=== PATIENT | male | born 1970 | race Caucasian/White ===

== ENCOUNTER 2018-11-30 11:11 | Emergency (ER) | payer MEDICARE, MEDICAID ==
[2018-11-30 11:19] VITALS: BP 143/114; PULSE 78
[2018-11-30] MEDS ORDERED: Metoclopramide 10 MG/2 ML SDV IM ONE (11:46)
[2018-11-30] MEDS ORDERED: diphenhydrAMINE 50 MG/ML SDV IM ONE (11:46)
[2018-11-30] MEDS ORDERED: Ketorolac 60 MG/2 ML SDV IM ONE (11:46)
--- NOTE | 2018-11-30 11:46 | EDM.PDOC ---
ED HPI GENERAL MEDICAL PROBLEM - General Chief Complaint: Headache Stated Complaint: BAD MIGRAINE X4 DAYS WANTS A SHOT Time Seen by Provider: 11/30/18 11:43 Source of Information: Reports: Patient History Limitations: Reports: No Limitations - History of Present Illness INITIAL COMMENTS - FREE TEXT/NARRATIVE: 48-year-old male presents for evaluation and treatment of a migraine. Patient reports he had a history of migraines. states it has been quite sometime since he has had one this severe. Reports the pain is behind his eyes, forehead and occipital area. Has been taking [id number] Tylenol with no relief. He is not normally on any medications for migraine. Reports symptoms of photophobia, lightheadedness, decreased appetite and feeling shaky. He denies any nausea or vomiting. He states that he had vision changes including his eyes showing black spots and "eyes going black." No vision changes at this time. He is sniffling. States he has environmental allergies and takes over-the- counter antihistamines for this. No fevers, chills, ear pain or sore throat. . Patient reports some tingling in his feet. this chronic before he had the migraine. He is unsure if he is a diabetic. He is a smoker. Primary care provider is Dr. Sharma. Onset: Gradual Duration: Day(s): (4) Location: Reports: Head Headache Pain Score (Numeric/FACES): 8 - Related Data Allergies Allergy/AdvReac Type Severity Reaction Status Date / Time No Known Allergies Allergy Verified 02/11/16 12:42 Home Meds: Home Meds . [No Known Home Meds] 11/30/18 [History] Past Medical History - Past Health History Medical/Surgical History: Denies Medical/Surgical History HEENT History: Reports: None Cardiovascular History: Reports: None Respiratory History: Reports: None, Other (See Below) Other Respiratory History: seasonal allergies Gastrointestinal History: Reports: None Genitourinary History: Reports: None Musculoskeletal History: Reports: Osteoarthritis Neurological History: Reports: Headaches, Chronic, Migraines Psychiatric History: Reports: Anxiety Other Psychiatric History: Past alcohol addiction. Patient has been sober for 14 years. Endocrine/Metabolic History: Reports: None Hematologic History: Reports: None Immunologic History: Reports: None Oncologic (Cancer) History: Reports: None Dermatologic History: Reports: None Other Dermatologic History: hx body lice - Infectious Disease History Infectious Disease History: Reports: None - Past Surgical History Head Surgeries/Procedures: Reports: None Other Musculoskeletal Surgeries/Procedures:: Lumbar surgery Social & Family History - Family History Family Medical History: Noncontributory - Tobacco Use Smoking Status *Q: Current Every Day Smoker Years of Tobacco use: 25 Packs/Tins Daily: 0.5 - Caffeine Use Caffeine Use: Reports: Coffee - Recreational Drug Use Recreational Drug Use: No - Living Situation & Occupation Living situation: Reports: Single, with Significant Other ED ROS GENERAL - Review of Systems Review Of Systems: See Below Constitutional: Denies: Fever, Chills HEENT: Reports: Vision Change (reports black spots and vision going black), Other (reports photophobia). Denies: Ear Pain, Throat Pain GI/Abdominal: Denies: Nausea, Vomiting Neurological: Reports: Headache, Tingling (bilateral feet, chronic) - Physical Exam Exam: See Below Exam Limited By: No Limitations General Appearance: Alert, WD/WN, No Apparent Distress Eye Exam: Bilateral Eye: Normal Inspection Ears: Normal External Exam Nose: Normal Inspection Throat/Mouth: Normal Inspection, Normal Lips, Normal Voice, No Airway Compromise Head Exam: Atraumatic, Normocephalic Neck: Normal Inspection Respiratory/Chest: No Respiratory Distress, Lungs Clear, Normal Breath Sounds Cardiovascular: Normal Peripheral Pulses, Regular Rate, Rhythm, No Murmur GI/Abdominal: Normal Bowel Sounds, Soft, Non-Tender Neuro Exam (Abbreviated): Alert, Oriented, Normal Cognition Psychiatric: Normal Affect, Normal Mood Skin Exam: Warm, Dry, Normal Color Course - Vital Signs Last Recorded V/S: Last Vital Signs Temp 96.9 F 11/30/18 11:16 Pulse 78 11/30/18 11:16 Resp 16 11/30/18 11:16 BP 143/114 H 11/30/18 11:16 Pulse Ox 97 11/30/18 11:16 - Orders/Labs/Meds Orders: Active Orders 24 hr Category Date Time Status Blood Glucose Check, Bedside [RC] ONETIME Care 11/30/18 11:47 Active Labs: Laboratory Tests 11/30/18 Range/Units 11:53 POC Glucose 93 (70-105) mg/dL Meds: Medications Discontinued Medications Generic Name Dose Route Start Last Admin Trade Name Freq PRN Reason Stop Dose Admin Diazepam 5 mg 11/30/18 12:28 11/30/18 12:39 Valium. PO 11/30/18 12:29 5 mg ONETIME ONE Administration Diphenhydramine HCl 50 mg 11/30/18 11:46 11/30/18 11:59 Benadryl IM 11/30/18 11:47 50 mg ONETIME ONE Administration Ketorolac Tromethamine 60 mg 11/30/18 11:46 11/30/18 11:57 Toradol IM 11/30/18 11:47 60 mg ONETIME ONE Administration Metoclopramide HCl 5 mg 11/30/18 11:46 11/30/18 11:58 Reglan IM 11/30/18 11:47 5 mg ONETIME ONE Administration Sumatriptan Succinate 50 mg 11/30/18 14:18 11/30/18 14:33 Imitrex PO 11/30/18 14:19 50 mg ONETIME ONE Administration - Re-Assessments/Exams Free Text/Narrative Re-Assessment/Exam: 11/30/18 12:48 Checked on the patient. He reports that his headache has not improved at all. I will treat him some Valium for more of a tension type headache. 11/30/18 14:14 Checked on the patient. He reports headache has not improved at all. He is resting in bed comfortably in no obvious distress. He is watching TV. Question if this is more of withdrawal from something with the reported shakiness or if he is possibly drug-seeking. 11/30/18 15:13 Checked on the patient. He reports his headache is gone after the Imitrex. We will discharge him home. Discharge instructions as documented. Departure - Departure Time of Disposition: 15:13 Disposition: Home, Self-Care 01 Condition: Good Clinical Impression: Migraine - Discharge Information *PRESCRIPTION DRUG MONITORING PROGRAM REVIEWED*: Yes *COPY OF PRESCRIPTION DRUG MONITORING REPORT IN PATIENT CALEB: No Instructions: Migraine Headache Referrals: Wilner Sharma Jr, MD [Primary Care Provider] - Forms: ED Department Discharge Additional Instructions: Go home and rest. Make sure you are drinking plenty of fluids. Follow-up with your primary care provider for further management of your migraines. Please return to the ER if your symptoms change or worsen. - My Orders Last 24 Hours: My Active Orders 11/30/18 11:47 Blood Glucose Check, Bedside [RC] ONETIME - Assessment/Plan Last 24 Hours: My Active Orders 11/30/18 11:47 Blood Glucose Check, Bedside [RC] ONETIME
[2018-11-30] MEDS ORDERED: Diazepam 5 MG Tab PO ONE (12:28)
[2018-11-30] MEDS ORDERED: SUMAtriptan 50 MG Tab PO ONE (14:18)
== END 2018-11-30 15:18 | disposition home or self-care (01) ==
LOC: JD.ED 11:11
DX: G43.909 Migraine, unspecified, not intractable, without status migrainosus (principal); F17.210 Nicotine dependence, cigarettes, uncomplicated; M19.90 Unspecified osteoarthritis, unspecified site
CPT/HCPCS: 82962; 96372; 99283; A9270; J1200; J1885; J2765

== ENCOUNTER 2019-04-03 19:13 | Emergency (ER) | payer MEDICARE, MEDICAID ==
[2019-04-03 19:27] VITALS: BP 160/109; PULSE 100
--- NOTE | 2019-04-03 19:41 | EDM.PDOC ---
ED HPI GENERAL MEDICAL PROBLEM - General Chief Complaint: Skin Complaint Stated Complaint: POSS INFECTION UNDER A DRUG PATCH Time Seen by Provider: 04/03/19 19:26 Source of Information: Reports: Patient History Limitations: Reports: No Limitations - History of Present Illness INITIAL COMMENTS - FREE TEXT/NARRATIVE: The patient presents for a rash under his drug patch. He first noticed the redness 3 days ago and it has gotten worse. He has no other symptoms such as shortness of breath or trouble breathing. Onset: Gradual Duration: Day(s): Location: Reports: Back (right flank area) Quality: Reports: Burning Severity: Moderate Improves with: Reports: None Worsens with: Reports: None Associated Symptoms: Reports: No Other Symptoms Right Abdominal Pain Score (Numeric/FACES): 9 - Related Data Allergies Allergy/AdvReac Type Severity Reaction Status Date / Time amoxicillin Allergy Rash Verified 04/03/19 19:28 Home Meds: Home Meds . [No Known Home Meds] 10/07/18 [History] Past Medical History - Past Health History Medical/Surgical History: Denies Medical/Surgical History Psychiatric History: Reports: Addiction - Past Surgical History Neurological Surgical History: Reports: Lumbar Spine Other Musculoskeletal Surgeries/Procedures:: Back surgery Social & Family History - Family History Family Medical History: Noncontributory - Tobacco Use Smoking Status *Q: Current Every Day Smoker Years of Tobacco use: 30 Packs/Tins Daily: 0.5 - Caffeine Use Caffeine Use: Reports: Coffee - Recreational Drug Use Recreational Drug Use: No - Living Situation & Occupation Living situation: Reports: Single Occupation: Unemployed ED ROS GENERAL - Review of Systems Review Of Systems: See Below Constitutional: Reports: No Symptoms HEENT: Reports: No Symptoms Respiratory: Reports: No Symptoms Cardiovascular: Reports: No Symptoms Endocrine: Reports: No Symptoms GI/Abdominal: Reports: No Symptoms : Reports: No Symptoms Skin: Reports: Rash (Under drug patch) Neurological: Reports: No Symptoms ED EXAM, SKIN/RASH Exam: See Below Exam Limited By: No Limitations General Appearance: Alert, No Apparent Distress Ears: Normal External Exam Nose: Normal Inspection Throat/Mouth: Normal Inspection Head: Atraumatic, Normocephalic Neck: Normal Inspection Respiratory/Chest: No Respiratory Distress Back Exam: Other (Right lateral back has a drug patch with erythema and some edema) Extremities: Normal Inspection Neurological: Alert, Oriented, No Motor/Sensory Deficits Course - Vital Signs Last Recorded V/S: Last Vital Signs Temp 98.5 F 04/03/19 19:25 Pulse 100 04/03/19 19:25 Resp 18 04/03/19 19:25 BP 160/109 H 04/03/19 19:25 Pulse Ox 98 04/03/19 19:25 - Orders/Labs/Meds Orders: Active Orders 24 hr Category Date Time Status Hydrocortisone [Hydrocortisone 1% Crm] Med 04/03/19 20:14 Once 30 gm TOP ASDIRECTED ONE - Re-Assessments/Exams Free Text/Narrative Re-Assessment/Exam: 04/03/19 19:41 [facility]. 04/03/19 20:15 [facility] came and took the patch. He has contact dermatitis. I will put some hydrocortisone cream on it. Departure - Departure Time of Disposition: 20:20 Disposition: Home, Self-Care 01 Condition: Good Clinical Impression: Contact dermatitis Qualifiers: Contact dermatitis type: allergic Contact dermatitis trigger: adhesive Qualified Code(s): L23.1 - Allergic contact dermatitis due to adhesives - Discharge Information *PRESCRIPTION DRUG MONITORING PROGRAM REVIEWED*: Not Applicable *COPY OF PRESCRIPTION DRUG MONITORING REPORT IN PATIENT CALEB: Not Applicable Referrals: Wilner Sharma Jr, MD [Primary Care Provider] - Forms: ED Department Discharge Additional Instructions: Put hydrocortisone cream on the affected area 3 times per day for 2 days and then 2 times per day for 5 days. Clean the affected area a couple times per day with warm soapy water. Sepsis Event Note - Evaluation Sepsis Screening Result: No Definite Risk - Focused Exam Vital Signs: Vital Signs Temp Pulse Resp BP Pulse Ox 04/03/19 19:25 98.5 F 100 18 160/109 H 98 Date Exam was Performed: 04/03/19 Time Exam was Performed: 20:15 - My Orders Last 24 Hours: My Active Orders 04/03/19 20:14 Hydrocortisone [Hydrocortisone 1% Crm] 30 gm TOP ASDIRECTED ONE - Assessment/Plan Last 24 Hours: My Active Orders 04/03/19 20:14 Hydrocortisone [Hydrocortisone 1% Crm] 30 gm TOP ASDIRECTED ONE
[2019-04-03] MEDS ORDERED: Hydrocortisone 1% Crm 30 GM Tube TOP ONE (20:14)
== END 2019-04-03 20:28 | disposition home or self-care (01) ==
LOC: JD.ED 19:13 → MERGE 19:13 → JD.ED 20:28
DX: L23.1 Allergic contact dermatitis due to adhesives (principal); F17.210 Nicotine dependence, cigarettes, uncomplicated; Z88.1 Allergy status to other antibiotic agents
CPT/HCPCS: 99282; A9270

== ENCOUNTER 2020-02-05 23:17 | Emergency (ER) | payer MEDICARE, MEDICAID ==
--- NOTE | 2020-02-05 23:31 | EDM.PDOC ---
ED HPI GENERAL MEDICAL PROBLEM - General Chief Complaint: Skin Complaint Stated Complaint: MRSA IN SHOULDER Time Seen by Provider: 02/05/20 23:45 Source of Information: Reports: Patient, RN Notes Reviewed - History of Present Illness INITIAL COMMENTS - FREE TEXT/NARRATIVE: 49 yr male comes in with area of swelling and erythema R superior shoulder that came on 2 or 3 days ago. Tried to "squeeze it" slight bloody drainage. No fever or chills. Right Shoulder Pain Score (Numeric/FACES): 9 - Related Data Allergies Allergy/AdvReac Type Severity Reaction Status Date / Time amoxicillin Allergy Rash Verified 02/05/20 23:32 Home Meds: Home Meds Doxycycline [Vibramycin] 100 mg PO BID #20 tab 02/05/20 [Rx] hydroCHLOROthiazide [Hydrochlorothiazide] 12.5 mg PO DAILY 02/05/20 [History] Past Medical History - Past Health History Medical/Surgical History: Denies Medical/Surgical History HEENT History: Reports: None Cardiovascular History: Reports: None Respiratory History: Reports: None, Other (See Below) Other Respiratory History: seasonal allergies Gastrointestinal History: Reports: None Genitourinary History: Reports: None Musculoskeletal History: Reports: Osteoarthritis Neurological History: Reports: Headaches, Chronic, Migraines Psychiatric History: Reports: Addiction, Anxiety Other Psychiatric History: Past alcohol addiction. Patient has been sober for 14 years. Endocrine/Metabolic History: Reports: None Hematologic History: Reports: None Immunologic History: Reports: None Oncologic (Cancer) History: Reports: None Dermatologic History: Reports: None Other Dermatologic History: hx body lice - Infectious Disease History Infectious Disease History: Reports: None - Past Surgical History Neurological Surgical History: Reports: Lumbar Spine Other Musculoskeletal Surgeries/Procedures:: Back surgery Social & Family History - Family History Family Medical History: No Pertinent Family History - Caffeine Use Caffeine Use: Reports: Coffee - Living Situation & Occupation Living situation: Reports: Single, with Significant Other Occupation: Unemployed ED ROS GENERAL - Review of Systems Review Of Systems: See Below Constitutional: Denies: Fever, Chills HEENT: Reports: No Symptoms Respiratory: Denies: Shortness of Breath Cardiovascular: Reports: No Symptoms GI/Abdominal: Reports: No Symptoms Musculoskeletal: Reports: No Symptoms Skin: Reports: Erythema (area of erythema and swelling R superior shoulder) Neurological: Reports: No Symptoms ED EXAM, SKIN/RASH Exam: See Below General Appearance: Alert, No Apparent Distress Head: Atraumatic Neck: Supple Respiratory/Chest: No Respiratory Distress Skin: Warm, Dry, Erythema (2 to 3 cm or erythema surrounding an area of central swelling R superior shoulder, no active drainage) Course - Vital Signs Last Recorded V/S: Last Vital Signs Temp 97.5 F 02/05/20 23:32 Pulse 89 02/05/20 23:32 Resp 17 02/05/20 23:32 BP 166/109 H 02/05/20 23:32 Pulse Ox 97 02/05/20 23:32 - Orders/Labs/Meds Meds: Medications Discontinued Medications Generic Name Dose Route Start Last Admin Trade Name Freq PRN Reason Stop Dose Admin Doxycycline Hyclate 100 mg 02/05/20 23:44 02/05/20 23:54 Vibramycin PO 02/05/20 23:45 100 mg ONETIME ONE Administration Departure - Departure Time of Disposition: 23:45 Disposition: Home, Self-Care 01 Condition: Fair Clinical Impression: Folliculitis - Discharge Information Prescriptions: Doxycycline [Vibramycin] 100 mg PO BID #20 tab Instructions: Folliculitis Referrals: Wilner Sharma Jr, MD [Primary Care Provider] - Forms: ED Department Discharge Additional Instructions: Doxycycline 100 mg twice daily for 10 days or until gone. First dose has been given here in the ED. Warm compresses about 4 times daily as discussed. In 2 to 3 days if a pus pocket develops this can be opened with with a needle or sharp blade to help that drain. Have rechecked if symptoms worsening or not resolving as expected. Sepsis Event Note (ED) - Focused Exam Vital Signs: Vital Signs Temp Pulse Resp BP Pulse Ox 02/05/20 23:32 97.5 F 89 17 166/109 H 97
[2020-02-05 23:36] VITALS: BP 166/109; PULSE 89
[2020-02-05] MEDS ORDERED: Doxycycline 100 MG Cap PO ONE (23:44)
== END 2020-02-05 23:56 | disposition home or self-care (01) ==
LOC: JD.ED 23:17
DX: L73.9 Follicular disorder, unspecified (principal); Z88.1 Allergy status to other antibiotic agents; Z79.899 Other long term (current) drug therapy
CPT/HCPCS: 99283; A9270

== ENCOUNTER 2020-07-12 20:42 | Emergency (ER) | payer MEDICARE, MEDICAID ==
[2020-07-12 20:55] VITALS: BP 149/99; PULSE 94
[2020-07-12] MEDS ORDERED: Sodium Chloride 0.9% 10 ML Syringe FLUSH PRN (21:32)
[2020-07-12] MEDS ORDERED: LORazepam 0.5 MG Tab PO ONE (21:47)
--- NOTE | 2020-07-12 21:53 | EDM.PDOC ---
ED HPI GENERAL MEDICAL PROBLEM - General Chief Complaint: Cardiovascular Problem Stated Complaint: HIGH BP DIZZY SPELLS Time Seen by Provider: 07/12/20 21:38 Source of Information: Reports: Patient, RN Notes Reviewed History Limitations: Reports: No Limitations, Intoxication - History of Present Illness INITIAL COMMENTS - FREE TEXT/NARRATIVE: Patient is a 50-year-old male who presents to the ER for his high blood pressure, and dizzy spells. This has been going on for some time. He was on blood pressure medications, in the past but notes he ran out in March, he cannot member the name of the medications. He has some intermittent dizzy spells, and states that he has been more fatigued lately, he has not actually checked his blood pressure at home, but states he can "feel when his blood pressure is up". He states that he has shortness of breath at times, seems to worsen when his blood pressure seems to be up. Patient does have a history of alcoholism, and he notes that he had "1 drink tonight" thought that it would help this however he states it did not. He does have some chest discomfort at times, in the middle of his chest, and does not seem to radiate anywhere. He denies any sort of past medical history like an OR, or stent placement. He is a smoker as well. He would like to try to quit smoking. - Related Data Allergies Allergy/AdvReac Type Severity Reaction Status Date / Time amoxicillin Allergy Rash Verified 02/05/20 23:32 Home Meds: Home Meds Doxycycline [Vibramycin] 100 mg PO BID #20 tab 02/05/20 [Rx] hydroCHLOROthiazide [Hydrochlorothiazide] 12.5 mg PO DAILY 02/05/20 [History] Past Medical History Cardiovascular History: Reports: Hypertension Respiratory History: Reports: Other (See Below) Other Respiratory History: seasonal allergies Musculoskeletal History: Reports: Osteoarthritis Neurological History: Reports: Headaches, Chronic, Migraines Psychiatric History: Reports: Addiction, Anxiety Other Psychiatric History: Past alcohol addiction. Patient has been sober for 14 years. Endocrine/Metabolic History: Reports: Obesity/BMI 30+ Dermatologic History: Reports: Other (See Below) Other Dermatologic History: hx body lice - Infectious Disease History Infectious Disease History: Reports: MRSA - Past Surgical History HEENT Surgical History: Reports: Other (See Below) Other HEENT Surgeries/Procedures: nose reconstruction Neurological Surgical History: Reports: Lumbar Spine Other Musculoskeletal Surgeries/Procedures:: Back surgery Social & Family History - Family History Family Medical History: No Pertinent Family History - Tobacco Use Tobacco Use Status *Q: Current Every Day Tobacco User Years of Tobacco use: 25 Packs/Tins Daily: 1 - Caffeine Use Caffeine Use: Reports: Coffee - Recreational Drug Use Recreational Drug Use: No - Living Situation & Occupation Living situation: Reports: Single, with Significant Other Occupation: Unemployed ED ROS GENERAL - Review of Systems Review Of Systems: Comprehensive ROS is negative, except as noted in HPI. ED EXAM, GENERAL - Physical Exam Exam: See Below Exam Limited By: No Limitations General Appearance: Alert, WD/WN, No Apparent Distress, Anxious (generalized) Throat/Mouth: Normal Inspection, Normal Lips, Normal Teeth, Normal Gums, Normal Oropharynx, Normal Voice, No Airway Compromise Head: Atraumatic, Normocephalic Neck: Normal Inspection Respiratory/Chest: No Respiratory Distress, Lungs Clear, Normal Breath Sounds, No Accessory Muscle Use, Chest Non-Tender Cardiovascular: Normal Peripheral Pulses, Regular Rate, Rhythm, No Edema Peripheral Pulses: 2+: Radial (L), Radial (R) Extremities: Normal Inspection, Normal Capillary Refill Neurological: Alert, Oriented, Normal Cognition, No Motor/Sensory Deficits Psychiatric: Normal Affect, Normal Mood, Anxious Skin Exam: Warm, Dry, Intact, Normal Color, No Rash #1 Interpretation EKG Date: 07/12/20 Time: 21:37 Rhythm: NSR Rate (Beats/Min): 71 [place]: Normal P-Wave: Present QRS: Normal ST-T: Normal QT: Normal Comparison: NA - No Prior EKG EKG Interpretation Comments: No obvious ischemia or acute ST changes noted, reviewed by myself and Dr. Jimenez. Course - Vital Signs Last Recorded V/S: Last Vital Signs Temp 96.8 F L 07/12/20 20:53 Pulse 94 07/12/20 20:53 Resp 16 07/12/20 20:53 BP 149/99 H 07/12/20 20:53 Pulse Ox 98 07/12/20 20:53 - Orders/Labs/Meds Orders: Active Orders 24 hr Category Date Time Status EKG Documentation Completion [RC] STAT Care 07/12/20 21:32 Active Peripheral IV Care [RC] . DIRECTED Care 05/01/21 21:32 Active Chest 2V [CR] Stat Exams 07/12/20 21:32 Ordered Sodium Chloride 0.9% [Saline Flush] Med 07/12/20 21:32 Active 10 ml FLUSH ASDIRECTED PRN Peripheral IV Insertion Adult [OM.PC] Stat Oth 07/12/20 21:32 Ordered Medication Orders Sodium Chloride (Sodium Chloride 0.9% 10 Ml Syringe) 10 ml FLUSH ASDIRECTED PRN PRN Reason: Keep Vein Open Labs: Laboratory Tests 07/12/20 07/12/20 07/12/20 Range/Units 21:44 21:44 21:44 WBC 7.76 (4.23-9.07) K/mm3 RBC 5.50 (4.63-6.08) M/mm3 Hgb 16.7 D (13.7-17.5) gm/dl Hct 47.6 (40.1-51.0) % MCV 86.5 (79.0-92.2) fl MCH 30.4 (25.7-32.2) pg MCHC 35.1 (32.2-35.5) g/dl RDW Std Deviation 41.8 (35.1-43.9) fL Plt Count 391 H (163-337) K/mm3 MPV 8.8 L (9.4-12.3) fl Neut % (Auto) 43.7 (34.0-67.9) % Lymph % (Auto) 45.1 (21.8-53.1) % [place] % (Auto) 7.7 (5.3-12.2) % Eos % (Auto) 3.0 (0.8-7.0) Baso % (Auto) 0.4 (0.1-1.2) % Neut # (Auto) 3.39 (1.78-5.38) K/mm3 Lymph # (Auto) 3.50 (1.32-3.57) K/mm3 [place] # (Auto) 0.60 (0.30-0.82) K/mm3 Eos # (Auto) 0.23 (0.04-0.54) K/mm3 Baso # (Auto) 0.03 (0.01-0.08) K/mm3 Sodium 140 (136-145) mEq/L Potassium 3.9 (3.5-5.1) mEq/L Chloride 104 (98-107) mEq/L Carbon Dioxide 25 (21-32) mEq/L Anion Gap 14.9 (5-15) BUN 15 (7-18) mg/dL Creatinine 1.1 (0.7-1.3) mg/dL Est Cr Clr Drug Dosing 75.95 mL/min Estimated GFR (MDRD) > 60 (>60) mL/min BUN/Creatinine Ratio 13.6 L (14-18) Glucose 92 (74-106) mg/dL Calcium 9.9 (8.5-10.1) mg/dL Total Bilirubin 0.2 (0.2-1.0) mg/dL AST 17 (15-37) U/L ALT 13 L (16-63) U/L Alkaline Phosphatase 67 (46-116) U/L Troponin I < 0.017 (0.00-0.056) ng/mL Total Protein 8.4 H (6.4-8.2) g/dl Albumin 4.4 (3.4-5.0) g/dl Globulin 4.0 gm/dL Albumin/Globulin Ratio 1.1 (1-2) Ethyl Alcohol 0.14 (0.00) gm% Meds: Medications Generic Name Dose Route Start Last Admin Trade Name Freq PRN Reason Stop Dose Admin Sodium Chloride 10 ml 07/12/20 21:32 Sodium Chloride 0.9% 10 Ml Syringe FLUSH ASDIRECTED PRN Keep Vein Open Discontinued Medications Generic Name Dose Route Start Last Admin Trade Name Freq PRN Reason Stop Dose Admin Lorazepam 1 mg 07/12/20 21:47 07/12/20 21:51 Lorazepam 0.5 Mg Tab PO 07/12/20 21:48 1 mg ONETIME ONE Administration - Re-Assessments/Exams Free Text/Narrative Re-Assessment/Exam: 07/12/20 21:54 Patient presents to the ER for his elevated blood pressure readings and dizzy spells. I do believe a portion of this is due to anxiety, he does appear to be intoxicated from alcohol as well. EKG demonstrates no acute ST change or abnormalities reviewed by Dr. Jimenez or myself. We will get baseline labs as well. Patient blood pressure has already come down to the 120 systolically while being in the ER. Plan is to have him follow-up with a primary care provider to monitor blood pressures and possibly get started on blood pressure medication once again. 07/12/20 22:27 The patient's laboratory evaluation has been done, and demonstrates no focal abnormalities, troponin is undetectably low, patient's blood alcohol level is 0.14. Will reassess the patient at bedside, and try to discharge home with conservative recommendations have him follow-up with the regular care provider sometime this week for ongoing blood pressure management. Departure - Departure Time of Disposition: 22:27 Disposition: Home, Self-Care 01 Condition: Good Clinical Impression: Elevated blood pressure reading with diagnosis of hypertension, Anxiety Instructions: Managing Anxiety, Adult, Hypertension, Adult, [id number] Referrals: PCP,None [Primary Care Provider] - Forms: ED Department Discharge Additional Instructions: You were evaluated in the ER today for your elevated blood pressure readings. You had some laboratory evaluation taken at today's visit, EKG was done along with a chest x-ray and everything is unremarkable. You were given some medications for anxiety at today's visit, this seemed to help relieve most your symptoms. Please continue to monitor your blood pressure at home, and keep a journal of this to discuss with a primary care provider of choice, you will need to follow- up in a clinic, to get a family practice provider. [facility] clinic number [phone], [place] clinic number [phone]. Any family practice provider would be able to provide you with the services. Recommend you call the [place] quits helpline, to help you quit smoking, as you expressed interest in wanting to stop smoking at [facility]'s visit. They should be able to help you through the rough time, give you medications to stop if needed. Please return to the ER at any time if symptoms change or worsen. Sepsis Event Note (ED) - Evaluation Sepsis Screening Result: No Definite Risk - Focused Exam Vital Signs: Vital Signs Temp Pulse Resp BP Pulse Ox 07/12/20 20:53 96.8 F L 94 16 149/99 H 98
--- NOTE | 2020-07-14 07:07 | CR ---
Chest: PA and lateral views of the chest were obtained. Comparison: Prior chest x-ray of 12/16/15. Heart size and mediastinum are normal. Lungs are clear with no acute parenchymal change. Bony structures show no acute osseous abnormality. Impression: 1. Nothing acute is appreciated on 2 view chest x-ray. Diagnostic code #1
== END 2020-07-12 22:40 | disposition home or self-care (01) ==
LOC: JD.ED 20:42
DX: F41.9 Anxiety disorder, unspecified (principal); I10 Essential (primary) hypertension; E66.9 Obesity, unspecified; Z88.0 Allergy status to penicillin; Z72.0 Tobacco use; Z68.30 Body mass index [BMI] 30.0-30.9, adult
CPT/HCPCS: 36415; 71046; 80053; 80307; 84484; 85025; 93005; 99285; A9270; 93010; 99283

== ENCOUNTER 2021-05-08 10:36 | Emergency (ER) | payer MEDICARE, MEDICAID ==
[2021-05-08 10:48] VITALS: BP 166/100; PULSE 94
[2021-05-08] MEDS ORDERED: Ketorolac 60 MG/2 ML SDV IM ONE (11:12)
== END 2021-05-08 12:05 | disposition home or self-care (01) ==
LOC: JD.ED 10:36
DX: M54.41 Lumbago with sciatica, right side (principal); M54.42 Lumbago with sciatica, left side; I10 Essential (primary) hypertension; Z88.0 Allergy status to penicillin
CPT/HCPCS: 72100; 96372; 99284; J1885

== ENCOUNTER 2022-10-31 18:35 | Emergency (ER) | payer MEDICARE, MEDICAID ==
[2022-10-31] MEDS ORDERED: Sodium Chloride 0.9% 1,000 ML IV SCH (19:30)
[2022-10-31 19:40] LABS: HEMATOCRIT 43.4 % (40.1-51.0); HEMOGLOBIN 15.3 gm/dl (13.7-17.5); MEAN CORPUSCULAR HEMOGLOBIN 30.8 pg (25.7-32.2); MEAN CORPUSCULAR HGB CONC 35.3 g/dl (32.2-35.5); MEAN CORPUSCULAR VOLUME 87.5 fl (79.0-92.2); MEAN PLATELET VOLUME 8.8 fl (9.4-12.3); PLATELET COUNT,PLT 479 K/mm3 (163-337); RED BLOOD CELL COUNT 4.96 M/mm3 (4.63-6.08); WHITE BLOOD CELL COUNT,WBC 14.73 K/mm3 (4.23-9.07)
[2022-10-31 20:23] LABS: BAND PERCENT MAN 0 % (0-10); BASOPHILS PERCENT MAN 0 (0.2-1.2); EOSINOPHILS PERCENT MAN 0 % (0.8-7.0); LYMPHOCYTES % ATYPICAL MANUAL 0 %; LYMPHOCYTES PERCENT MAN 10 % (20-40); MONOCYTES PERCENT MAN 10 % (2-10)
[2022-10-31 20:24] LABS: PLATELET COUNT ESTIMATE INCREASED
[2022-10-31] MEDS ORDERED: Ondansetron 4 MG/2 ML SDV IVPUSH ONE (21:23)
[2022-10-31] MEDS ORDERED: Clindamycin Phosphate in D5W 300 MG in Premix Bag 1 BAG IV STA ×2 (21:23)
[2022-10-31 21:58] VITALS: BP 157/95; PULSE 100
== END 2022-10-31 21:54 | disposition home or self-care (01) ==
LOC: JD.ED 18:35
DX: J02.0 Streptococcal pharyngitis (principal); F17.210 Nicotine dependence, cigarettes, uncomplicated; Z20.822 Contact with and (suspected) exposure to COVID-19; Z79.899 Other long term (current) drug therapy; Z88.0 Allergy status to penicillin; Z88.1 Allergy status to other antibiotic agents
CPT/HCPCS: 36415; 70360; 71046; 85007; 85027; 86140; 87651; 96361; 96365; 96375; 99284; J2405; J3490; J7030; U0002

== ENCOUNTER 2022-11-15 18:25 | Emergency (ER) | payer MEDICARE, MEDICAID ==
[2022-11-15] MEDS ORDERED: HYDROmorphone 0.5 MG/0.5 ML Syringe IM ONE (19:27)
[2022-11-15 21:23] VITALS: BP 147/98; PULSE 114
== END 2022-11-15 21:40 | disposition home or self-care (01) ==
LOC: JD.ED 18:25
DX: M16.0 Bilateral primary osteoarthritis of hip (principal); F17.210 Nicotine dependence, cigarettes, uncomplicated; I10 Essential (primary) hypertension; Z79.899 Other long term (current) drug therapy; Z88.0 Allergy status to penicillin; Z88.1 Allergy status to other antibiotic agents
CPT/HCPCS: 72192; 96372; 99283; J1170

== ENCOUNTER 2022-12-21 12:46 | Emergency (ER) | payer MEDICARE, MEDICAID ==
[2022-12-21] MEDS ORDERED: Cephalexin 500 MG Cap PO ONE (13:48)
[2022-12-21 20:06] VITALS: BP 158/112; PULSE 107
== END 2022-12-21 14:38 ==
LOC: JD.ED 12:46
DX: L03.116 Cellulitis of left lower limb (principal); F17.210 Nicotine dependence, cigarettes, uncomplicated; E66.9 Obesity, unspecified; I10 Essential (primary) hypertension; Z79.899 Other long term (current) drug therapy; Z88.0 Allergy status to penicillin; Z88.1 Allergy status to other antibiotic agents
CPT/HCPCS: 99283; A9270

== ENCOUNTER 2023-01-09 01:32 | Emergency (ER) | payer MEDICARE, MEDICAID ==
[2023-01-09 01:46] VITALS: BP 136/98; PULSE 116
== END 2023-01-09 03:43 | disposition home or self-care (01) ==
LOC: JD.ED 01:32
DX: K04.7 Periapical abscess without sinus (principal); F17.210 Nicotine dependence, cigarettes, uncomplicated; E66.9 Obesity, unspecified; Z68.26 Body mass index [BMI] 26.0-26.9, adult; Z86.16 Personal history of COVID-19; Z88.0 Allergy status to penicillin
CPT/HCPCS: 99282; 99283

== ENCOUNTER 2023-02-23 23:08 | Emergency (ER) | payer MEDICARE, MEDICAID ==
[2023-02-24] MEDS ORDERED: Acetaminophen/Butalbital/Caffeine 325-50-40 MG Tab PO ONE (00:25)
[2023-02-24 01:10] VITALS: BP 172/108; PULSE 97
== END 2023-02-24 00:42 | disposition home or self-care (01) ==
LOC: JD.ED 23:08
DX: I10 Essential (primary) hypertension (principal); R51.9 Headache, unspecified; F17.210 Nicotine dependence, cigarettes, uncomplicated; Z86.16 Personal history of COVID-19; Z88.0 Allergy status to penicillin; Z88.1 Allergy status to other antibiotic agents
CPT/HCPCS: 99283; A9270

== ENCOUNTER 2023-03-22 08:20 | Emergency (ER) | payer MEDICARE, MEDICAID ==
[2023-03-22] MEDS ORDERED: Acetaminophen/HYDROcodone 325-5 MG Tab PO ONE (08:52)
[2023-03-22 09:02] VITALS: BP 143/96; PULSE 64
== END 2023-03-22 09:00 | disposition home or self-care (01) ==
LOC: JD.ED 08:20
DX: M16.11 Unilateral primary osteoarthritis, right hip (principal); F17.210 Nicotine dependence, cigarettes, uncomplicated; I10 Essential (primary) hypertension; Z86.16 Personal history of COVID-19; Z79.899 Other long term (current) drug therapy; Z88.0 Allergy status to penicillin; Z88.1 Allergy status to other antibiotic agents
CPT/HCPCS: 99283

== ENCOUNTER 2023-09-14 10:06 | Emergency (ER) | payer MEDICARE, MEDICAID ==
[2023-09-14] MEDS: Ketorolac 60 MG/2 ML SDV IM ONE (11:01)
[2023-09-14] MEDS: HYDROmorphone 1 MG/ML Syringe IM ONE (11:02)
[2023-09-14] MEDS ORDERED: Sodium Chloride 0.9% 10 ML Syringe FLUSH PRN (11:38)
[2023-09-14] MEDS: fentaNYL 100 MCG/2 ML SDV IVPUSH ONE (14:18)
[2023-09-14 15:24] VITALS: BP 141/93; PULSE 78
== END 2023-09-14 13:35 | disposition home or self-care (01) ==
LOC: JD.ED 10:06
DX: M16.11 Unilateral primary osteoarthritis, right hip (principal); I10 Essential (primary) hypertension; Z86.16 Personal history of COVID-19; Z87.891 Personal history of nicotine dependence; Z79.899 Other long term (current) drug therapy; Z88.0 Allergy status to penicillin
CPT/HCPCS: 73502; 73700; 96372; 99284; J1170; J1885

== ENCOUNTER 2023-11-10 22:00 | Emergency (ER) | payer MEDICARE, MEDICAID ==
[2023-11-10 22:47] VITALS: BP 183/96; PULSE 70
[2023-11-11] MEDS ORDERED: Sodium Chloride 0.9% 10 ML Syringe FLUSH PRN (00:42)
[2023-11-11 01:11] LABS: BASOPHILS PERCENT AUTO 0.4 % (0.0-1.0); EOSINOPHILS ABSOLUTE AUTO 0.3 K/mm3 (0.0-0.4); EOSINOPHILS PERCENT AUTO 3.4 % (0.0-6.0); HEMATOCRIT 37.1 % (42.0-52.0); HEMOGLOBIN 12.7 gm/dl (14.0-18.0); IMMATURE GRAN ABSOLUTE AUTO 0.02 K/mm3 (0.00-0.05); IMMATURE GRAN PERCENT AUTO 0.3 % (0.0-0.4); LYMPHOCYTES ABSOLUTE AUTO 2.9 K/mm3 (1.0-4.8); LYMPHOCYTES PERCENT AUTO 38.1 % (24.0-44.0); MEAN CORPUSCULAR HEMOGLOBIN 30.8 pg (28.0-32.0); MEAN CORPUSCULAR HGB CONC 34.2 g/dl (32.0-36.0); MEAN CORPUSCULAR VOLUME 89.8 fl (83.0-99.0); MEAN PLATELET VOLUME 8.7 fl (9.4-12.4); MONOCYTES ABSOLUTE AUTO 0.7 K/mm3 (0.0-0.8); MONOCYTES PERCENT AUTO 8.5 % (0.0-8.0); NEUTROPHILS ABSOLUTE AUTO 3.8 K/mm3 (1.8-7.7); NEUTROPHILS PERCENT AUTO 49.3 % (41.0-71.0); PLATELET COUNT,PLT 321 K/mm3 (150-400); RED BLOOD CELL COUNT 4.13 M/mm3 (4.52-5.90); WHITE BLOOD CELL COUNT,WBC 7.67 K/mm3 (3.9-11.3)
[2023-11-11 01:36] LABS: A/G RATIO 1.1 (1-2); ALBUMIN 3.7 g/dl (3.4-5.0); ANION GAP 12.6 (5-15); BILIRUBIN TOTAL 0.4 mg/dL (0.2-1.0); C-REACTIVE PROTEIN 0.09 mg/dL (<0.30); CALCIUM 8.7 mg/dL (8.5-10.1); EST CRCL DRUG DOSING (CG) 80.79 mL/min; MAGNESIUM 1.8 mg/dL (1.8-2.4); POTASSIUM,K 3.6 mEq/L (3.5-5.1)
[2023-11-11 02:10] LABS: APPEARANCE,URINE CLEAR (Clear); BILIRUBIN,URINE NEGATIVE (Negative); COLOR,URINE YELLOW (Yellow); GLUCOSE,URINE NEGATIVE (Negative); KETONES,URINE NEGATIVE (Negative); LEUKOCYTE ESTERASE,URINE TRACE (Negative); NITRITE,URINE NEGATIVE (Negative); OCCULT BLOOD,URINE NEGATIVE (Negative); PROTEIN,URINE NEGATIVE (Negative); UROBILINOGEN,URINE 0.2 (0.2-1.0)
[2023-11-11 02:16] LABS: BACTERIA,URINE RARE /hpf (FEW); EPITHELIAL CELLS,URINE 0-5 /hpf (0-5); MUCUS,URINE NOT SEEN /hpf (FEW); RBC,URINE NOT SEEN /hpf (0-5); WBC,URINE 0-5 /hpf (0-5)
[2023-11-11] MEDS: Doxycycline Monohydrate 100 MG Cap PO ONE (05:08)
== END 2023-11-11 05:20 | disposition home or self-care (01) ==
LOC: JD.ED 22:00
DX: N39.0 Urinary tract infection, site not specified (principal); R33.9 Retention of urine, unspecified; F17.210 Nicotine dependence, cigarettes, uncomplicated; I10 Essential (primary) hypertension; Z86.16 Personal history of COVID-19; Z79.899 Other long term (current) drug therapy; Z88.0 Allergy status to penicillin; Z88.1 Allergy status to other antibiotic agents
CPT/HCPCS: 36415; 51701; 51798; 80053; 81001; 83690; 83735; 85025; 86140; 87086; 93005; 99284; A9270; C1758; 99283

== ENCOUNTER 2023-11-18 11:16 | Emergency (ER) | payer MEDICARE, MEDICAID ==
[2023-11-18 12:50] LABS: BASOPHILS PERCENT AUTO 0.4 % (0.0-1.0); EOSINOPHILS ABSOLUTE AUTO 0.2 K/mm3 (0.0-0.4); EOSINOPHILS PERCENT AUTO 2.5 % (0.0-6.0); HEMATOCRIT 38.4 % (42.0-52.0); IMMATURE GRAN ABSOLUTE AUTO 0.02 K/mm3 (0.00-0.05); IMMATURE GRAN PERCENT AUTO 0.2 % (0.0-0.4); LYMPHOCYTES ABSOLUTE AUTO 2.6 K/mm3 (1.0-4.8); LYMPHOCYTES PERCENT AUTO 26.4 % (24.0-44.0); MEAN CORPUSCULAR HEMOGLOBIN 30.9 pg (28.0-32.0); MEAN CORPUSCULAR HGB CONC 33.9 g/dl (32.0-36.0); MEAN CORPUSCULAR VOLUME 91.2 fl (83.0-99.0); MEAN PLATELET VOLUME 9.3 fl (9.4-12.4); MONOCYTES ABSOLUTE AUTO 0.7 K/mm3 (0.0-0.8); NEUTROPHILS ABSOLUTE AUTO 6.2 K/mm3 (1.8-7.7); NEUTROPHILS PERCENT AUTO 63.5 % (41.0-71.0); PLATELET COUNT,PLT 362 K/mm3 (150-400); RED BLOOD CELL COUNT 4.21 M/mm3 (4.52-5.90); WHITE BLOOD CELL COUNT,WBC 9.77 K/mm3 (3.9-11.3)
[2023-11-18 13:01] LABS: APPEARANCE,URINE CLOUDY (Clear); BILIRUBIN,URINE NEGATIVE (Negative); COLOR,URINE PINK (Yellow); GLUCOSE,URINE NEGATIVE (Negative); KETONES,URINE NEGATIVE (Negative); LEUKOCYTE ESTERASE,URINE 1+ (Negative); NITRITE,URINE NEGATIVE (Negative); OCCULT BLOOD,URINE 3+ (Negative); PROTEIN,URINE 2+ (Negative); UROBILINOGEN,URINE 0.2 (0.2-1.0)
[2023-11-18 13:10] LABS: A/G RATIO 1.2 (1-2); ALBUMIN 3.9 g/dl (3.4-5.0); ANION GAP 16.6 (5-15); BILIRUBIN TOTAL 0.4 mg/dL (0.2-1.0); BUN/CREATININE RATIO 16.4 (14-18); CALCIUM 8.8 mg/dL (8.5-10.1); CREATININE 1.1 mg/dL (0.7-1.3); EST CRCL DRUG DOSING (CG) 73.44 mL/min; POTASSIUM,K 3.6 mEq/L (3.5-5.1); PROTEIN TOTAL,TP 7.2 g/dl (6.4-8.2)
[2023-11-18 13:55] LABS: BACTERIA,URINE FEW /hpf (FEW); EPITHELIAL CELLS,URINE 0-5 /hpf (0-5); RBC,URINE >100 /hpf (0-5)
[2023-11-18 13:56] LABS: MUCUS,URINE RARE /hpf (FEW)
[2023-11-18 19:43] VITALS: BP 147/84; PULSE 70
== END 2023-11-18 16:26 | disposition home or self-care (01) ==
LOC: JD.ED 11:16
DX: R31.0 Gross hematuria (principal); I10 Essential (primary) hypertension; Z86.16 Personal history of COVID-19; Z79.899 Other long term (current) drug therapy; Z88.0 Allergy status to penicillin
CPT/HCPCS: 36415; 51798; 80053; 81001; 85025; 99282; 99283-25

== ENCOUNTER 2024-01-09 08:11 | Day surgery (SDC) | payer MEDICARE, MEDICAID ==
[~2024-01-09 08:11] MED LIST: Sodium Chloride 0.9% 10 ML Syringe FLUSH PRN; Sodium Chloride 0.9% 10 ML Syringe FLUSH SCH
[2024-01-09] MEDS: Lactated Ringers 1,000 ML IV SCH (08:30)
[2024-01-09 09:06] LABS: AMPHETAMINES SCREEN, URINE NEGATIVE (CUTOFF=500); BARBITURATE SCREEN,URINE NEGATIVE (CUTOFF=200); BENZODIAZEPINES SCREEN,URINE NEGATIVE (CUTOFF=150); BUPRENORPHINE SCREEN,URINE NEGATIVE (CUTOFF=10); METHADONE SCREEN, URINE NEGATIVE (CUT0FF=200); METHAMPHETAMINES SCREEN, URINE NEGATIVE (CUTOFF=500); OXYCODONE SCREEN,URINE NEGATIVE (CUT0FF=100); THC SCREEN,URINE 20 NG/ML NEGATIVE (CUTOFF=50)
[2024-01-09] MEDS: Acetaminophen 325 MG Tab PO ONE (10:26)
[2024-01-09] MEDS: Pregabalin 25 MG Cap PO ONE (10:27)
[2024-01-09] MEDS: oxyCODONE ER 10 MG TAB.ER PO ONE (10:27)
[2024-01-09] MEDS ORDERED: Midazolam 1 MG/ML 2 ML SDV ONE ×2 (11:27→12:02)
[2024-01-09] MEDS ORDERED: fentaNYL 100 MCG/2 ML SDV ONE (11:27)
[2024-01-09] MEDS ORDERED: Lidocaine 1% 5 ML VIAL ONE (11:27)
[2024-01-09] MEDS ORDERED: Propofol 200 MG/20 ML SDV ONE ×3 (11:28→12:41)
[2024-01-09] MEDS ORDERED: Dexamethasone 4 MG/ML 5 ML MDV ONE (11:28)
[2024-01-09] MEDS ORDERED: ceFAZolin 2 GM Vial ONE (11:28)
[2024-01-09] MEDS ORDERED: Ondansetron 4 MG/2 ML SDV ONE (11:28)
[2024-01-09] MEDS: Albuterol 0.083% 2.5 MG/3 ML Neb Soln NEB ONE (11:32)
[2024-01-09] MEDS ORDERED: Phenylephrine 1% 10 MG/ML SDV ONE (11:51)
[2024-01-09] MEDS ORDERED: Lactated Ringers 1,000 ML IV ONE (12:20)
[2024-01-09] MEDS ORDERED: Ondansetron 4 MG/2 ML SDV IVPUSH PRN (12:31)
[2024-01-09] MEDS ORDERED: fentaNYL 100 MCG/2 ML SDV IVPUSH PRN (12:31)
[2024-01-09] MEDS ORDERED: HYDROmorphone 0.5 MG/0.5 ML Syringe IVPUSH PRN (12:31)
[2024-01-09] MEDS ORDERED: droPERidol 5 MG/2 ML SDV IVPUSH PRN (12:31)
[2024-01-09] MEDS ORDERED: Ketorolac 30 MG/ML SDV ONE (13:07)
[2024-01-09] MEDS: Morphine 8 MG, EPINEPHrine 0.3 MG, Cefuroxime 750 MG, Ketorolac 30 MG, Sodium Chloride ... PRN (13:09)
[2024-01-09] MEDS: Vancomycin 1 GM SDV ONE (13:09)
[2024-01-09] MEDS: Tranexamic Acid 1,000 MG/10 ML Vial ONE (13:09)
[2024-01-09] MEDS: oxyCODONE 5 MG Tab PO PRN (14:50)
[2024-01-09 16:58] VITALS: BP 118/84; PULSE 80
== END 2024-01-09 17:25 | disposition home or self-care (01) ==
LOC: JD.SDS 08:11
PROVIDERS: ATTEND Orthopaedic Surgery
DX: M16.11 Unilateral primary osteoarthritis, right hip (principal); I10 Essential (primary) hypertension; R39.12 Poor urinary stream; R33.9 Retention of urine, unspecified; E66.9 Obesity, unspecified; R31.29 Other microscopic hematuria; F17.210 Nicotine dependence, cigarettes, uncomplicated; Z91.040 Latex allergy status; Z88.0 Allergy status to penicillin; Z88.1 Allergy status to other antibiotic agents; Z79.899 Other long term (current) drug therapy; Z79.01 Long term (current) use of anticoagulants; Z68.32 Body mass index [BMI] 32.0-32.9, adult
CPT/HCPCS: 36415; 73501-26-RT; 73501-RT; 80306; 86850; 86900; 86901; 97116-GP; 97161-GP; A9270-GY; C1713; C1776; J0171; J0690; J0697; J1100; J1885; J2250; J2270; J2371; J2405; J2704; J3010; J3370; J3490; J7120; J7620-GY

== ENCOUNTER 2024-04-05 06:15 | Observation (INO) | payer MEDICARE, MEDICAID ==
[~2024-04-05 06:15] MED LIST changes: +Midazolam 1 MG/ML 2 ML SDV ONE; +Ondansetron 4 MG/2 ML SDV ONE; +Propofol 200 MG/20 ML SDV ONE; -Sodium Chloride 0.9% 10 ML Syringe FLUSH PRN; -Sodium Chloride 0.9% 10 ML Syringe FLUSH SCH
[2024-04-05] MEDS: Pregabalin 25 MG Cap PO ONE (07:00)
[2024-04-05] MEDS: Acetaminophen 325 MG Tab PO ONE (07:00)
[2024-04-05] MEDS: VANCOmycin 1.25 GM/250 ML 1.25 GM in Premix Bag 1 BAG IV ONE (07:00)
[2024-04-05] MEDS ORDERED: Sodium Chloride 0.9% 10 ML Syringe FLUSH PRN (07:00)
[2024-04-05] MEDS: oxyCODONE ER 10 MG TAB.ER PO ONE (07:01)
[2024-04-05] MEDS ORDERED: Lidocaine 1% 5 ML VIAL ONE (07:02)
[2024-04-05] MEDS ORDERED: Phenylephrine 1% 10 MG/ML SDV ONE (07:05)
[2024-04-05] MEDS ORDERED: Ketamine 200 MG/20 ML MDV ONE (07:17)
[2024-04-05] MEDS ORDERED: fentaNYL 100 MCG/2 ML SDV ONE (07:44)
[2024-04-05] MEDS ORDERED: ceFAZolin 2 GM Vial ONE (07:46)
[2024-04-05] MEDS ORDERED: Ondansetron 4 MG/2 ML SDV IVPUSH PRN (08:23)
[2024-04-05] MEDS ORDERED: fentaNYL 100 MCG/2 ML SDV IVPUSH PRN (08:23)
[2024-04-05] MEDS ORDERED: HYDROmorphone 0.5 MG/0.5 ML Syringe IVPUSH PRN (08:23)
[2024-04-05] MEDS ORDERED: Lactated Ringers 1,000 ML ONE (08:25)
[2024-04-05] MEDS: Tranexamic Acid 1,000 MG/10 ML Vial ONE (08:47)
[2024-04-05] MEDS: VANCOmycin 1 GM SDV ONE (08:47)
[2024-04-05] MEDS: Morphine 8 MG, EPINEPHrine 0.3 MG, Cefuroxime 750 MG, Ketorolac 30 MG, Sodium Chloride ... PRN (08:49)
[2024-04-05] MEDS ORDERED: Propofol 200 MG/20 ML SDV ONE (09:06)
[2024-04-05] MEDS ORDERED: Naloxone 0.4 MG/ML SDV IVPUSH PRN (09:23)
[2024-04-05] MEDS: Acetaminophen/HYDROcodone 325-5 MG Tab PO PRN (10:36)
[2024-04-05] MEDS: Sodium Chloride 0.9% 10 ML Syringe FLUSH SCH (12:43)
[2024-04-05] MEDS: Cyclobenzaprine 10 MG Tab PO PRN ×2 (13:01→20:25)
[2024-04-05] MEDS: Lactated Ringers 1,000 ML IV SCH (13:01)
[2024-04-05] MEDS: Calcium Carbonate 500 MG Tab.Chew PO PRN (18:28)
[2024-04-06 05:03] LABS: HEMATOCRIT 31.7 % (42.0-52.0); HEMOGLOBIN 10.5 gm/dl (14.0-18.0); MEAN CORPUSCULAR HEMOGLOBIN 30.2 pg (28.0-32.0); MEAN CORPUSCULAR HGB CONC 33.1 g/dl (32.0-36.0); MEAN CORPUSCULAR VOLUME 91.1 fl (83.0-99.0); MEAN PLATELET VOLUME 9.3 fl (9.4-12.4); PLATELET COUNT,PLT 280 K/mm3 (150-400); RED BLOOD CELL COUNT 3.48 M/mm3 (4.52-5.90)
[2024-04-06 05:56] LABS: A/G RATIO 0.9 (1-2); ANION GAP 13.9 (5-15); BILIRUBIN TOTAL 0.7 mg/dL (0.2-1.0); BUN/CREATININE RATIO 9.1 (14-18); CALCIUM 8.4 mg/dL (8.5-10.1); CREATININE 1.1 mg/dL (0.7-1.3); EST CRCL DRUG DOSING (CG) 72.61 mL/min; POTASSIUM,K 3.9 mEq/L (3.5-5.1); PROTEIN TOTAL,TP 6.3 g/dl (6.4-8.2)
[2024-04-06] MEDS: Tamsulosin 0.4 MG Cap.ER PO SCH (07:24)
[2024-04-06] MEDS: Apixaban 2.5 MG Tab PO SCH (07:24)
[2024-04-06] MEDS: Morphine 2 MG/ML SYRINGE IVPUSH PRN (07:26)
[2024-04-06] MEDS: Ketorolac 30 MG/ML SDV IVPUSH ONE (08:28)
[2024-04-06] MEDS ORDERED: Apixaban 2.5 MG Tab PO SCH (09:00)
[2024-04-06 09:31] VITALS: BP 117/73; PULSE 102
== END 2024-04-06 09:20 | disposition home or self-care (01) ==
LOC: JD.SDS 06:15 → JD.ICU 09:23
PROVIDERS: ADMIT Orthopaedic Surgery; ATTEND Orthopaedic Surgery
DX: M16.12 Unilateral primary osteoarthritis, left hip (principal); I10 Essential (primary) hypertension; K21.9 Gastro-esophageal reflux disease without esophagitis; F41.9 Anxiety disorder, unspecified; D50.9 Iron deficiency anemia, unspecified; Z79.899 Other long term (current) drug therapy; Z88.0 Allergy status to penicillin
CPT/HCPCS: 0055T; 27130; 36415; 73501; 80053; 85027; 96361; 96374; 96375; 97110; 97116; 97162; 97530; A9270; C1713; C1776; G0378; J0171; J0690; J0697; J1885; J2250; J2270; J2272; J2371; J2405; J2704; J3010; J3372; J3490; J7120; 01214